=== PATIENT | male | born 1980 | race Caucasian/White ===

== ENCOUNTER 2017-10-02 09:37 | Emergency (ER) | payer SELFPAY ==
[2017-10-02 10:19] LABS: Urine Blood NEGATIVE (NEG); Urine Glucose NEGATIVE (NEG); Urine Protein NEGATIVE (NEG); Urine Specific Gravity 1.015 (1.005-1.030)
[2017-10-02 10:35] LABS: Absolute Monocytes 0.6 K/uL (0.1-1.3); Absolute Neutrophil 3.7 K/uL (1.8-8.0); Basophils % 0.2 % (0-1.3); Eosinophils % 1.6 % (0-4.4); Hematocrit 42.6 % (39.6-49.0); Lymphocytes % 31.4 % (15.3-44.8); MCH 31.2 pg (27.0-35.0); MCV 91.1 fL (80-100); MPV 7.1 fL (7.6-11.3); Monocytes % 9.7 % (3.3-12.3); RBC Red Blood Cell Count 4.68 M/uL (4.33-5.43)
[2017-10-02 10:37] LABS: Urine Amorphous Sediment TRACE /HPF (NONE SEEN); Urine Bacteria NONE SEEN /HPF (NONE SEEN); Urine Culture Reflex Order NOT NEEDED; Urine Mucus NS /HPF (NONE SEEN); Urine RBC NONE SEEN /HPF (NONE SEEN)
[2017-10-02 10:38] LABS: Potassium 3.4 mEq/L (3.6-5.0)
--- NOTE | 2017-10-02 11:48 | RAD REPORT ---
EXAM DESCRIPTION: CT - Abdomen Pelvis W Contrast - 10/02/2017 11:34 am CLINICAL HISTORY: Abdominal pain, hematochezia COMPARISON: None. TECHNIQUE: Biphasic, helical CT imaging of the abdomen and pelvis was performed following 100 ml non -ionic IV contrast. Oral contrast was given. All CT scans are performed using dose optimization technique as appropriate and may include automated exposure control or mA/KV adjustment according to patient size. FINDINGS: No suspicious findings in the lung bases. The liver, spleen, and pancreas show no suspicious findings. Gallbladder and biliary tree are also wi thout suspicious finding. Gallstones can be occult. Symmetric renal function is seen with no hydronephrosis or suspicious renal mass. No pyelonephritis o r acute renal parenchymal process. Well filled urinary bladder shows no abnormality. Prostate gland a nd seminal vesicles within normal limits. No dilated bowel loops or bowel wall thickening. No direct or indirect evidence for appendicitis. No GI process seen to explain bloody stools. No free air, free fluid or inflammatory stranding. No yessica ia, mass or bulky lymphadenopathy. The urinary bladder is without significant finding. No adrenal abn ormality. No suspicious bony findings. IMPRESSION: Contrast enhanced CT abdomen and pelvis showing no significant or suspicious finding. N o abnormality to explain pain symptoms or GI bleed findings.
--- NOTE | 2017-10-02 11:50 | ER ---
Nurse's Notes [facility] Name: Marc Oneill Age: 37 yrs Sex: Male : 1980 Arrival Date: 10/02/2017 Time: 09:39 Bed 6 Private MD: Diagnosis: Varicocele Presentation: 10/02 09:42 Presenting complaint: Patient states: I have had dark red blood in my stool for the la1 past 2 days, pt also reports abd pain. Denies N/V. Transition of care: patient was not received from another setting of care. Onset of symptoms was October 02, 2017. Care prior to arrival: None. 09:42 Method Of Arrival: Ambulatory la1 09:42 Acuity: ANGUS 3 la1 Historical: - Allergies: 09:43 No Known Allergies; la1 - PMHx: 09:43 None; la1 - PSHx: 09:43 None; la1 - Immunization history:: Adult Immunizations up to date. - Social history:: Smoking status: Patient uses tobacco products, smokes one pack cigarettes per day. Screenin:00 Abuse screen: Denies threats or abuse. Denies injuries from another. Nutritional jl7 screening: No deficits noted. Tuberculosis screening: No symptoms or risk factors identified. Fall Risk IV access (20 points). Assessment: 09:55 General: Appears in no apparent distress. uncomfortable, Behavior is anxious. Pain: jl7 Complains of pain in groin Pain does not radiate. Pain currently is 7 out of 10 on a pain scale. Quality of pain is described as throbbing, Pain began 2-3 days ago. Is continuous. Neuro: Level of Consciousness is awake, alert, obeys commands, Oriented to person, place, time, situation. Cardiovascular: Patient's skin is warm and dry. Respiratory: Airway is patent Respiratory effort is even, unlabored, Respiratory pattern is regular, symmetrical. GI: Abdomen is flat, non-distended, Bowel sounds present X 4 quads. : Genitalia appear normal Reports pain scrotum, testicle. EENT: No signs and/or symptoms were reported regarding the EENT system. Derm: Skin is pink, warm \T\ dry. Musculoskeletal: No signs and/or symptoms reported regarding the musculoskeletal system. 11:05 Reassessment: No changes from previously documented assessment. Patient and/or family jl7 updated on plan of care and expected duration. Pain level reassessed. Patient is alert, oriented x 3, equal unlabored respirations, skin warm/dry/pink. 11:45 Reassessment: Provider at bedside. jl7 Vital Signs: 09:43 BP 186 / 110; Pulse 55; Resp 16; Temp 97.2(TE); Pulse Ox 100% on R/A; Weight 86.18 kg; la1 Height 6 ft. 0 in. (182.88 cm); 10:00 BP 168 / 91; Pulse 50; Resp 16 S; Pulse Ox 100% on R/A; Pain 7/10; jl7 11:04 BP 154 / 104; Pulse 47; Resp 16 S; Pulse Ox 98% on R/A; jl7 11:55 BP 149 / 101; Pulse 54; Resp 16 S; Pulse Ox 98% on R/A; jl7 09:43 Body Mass Index 25.77 (86.18 kg, 182.88 cm) la1 ED Course: 09:39 Patient arrived in ED. tw3 09:41 Luba Reagan FNP-C is PHCP. kb 09:41 Bill Girard MD is Attending Physician. kb 09:43 Triage completed. la1 09:43 Arm band placed on left wrist. la1 09:45 Amos Crane RN is Primary Nurse. jl7 10:00 Patient has correct armband on for positive identification. Placed in gown. Bed in low jl7 position. Call light in reach. Side rails up X 1. Pulse ox on. NIBP on. 10:00 Initial lab(s) drawn, by me, sent to lab. Urine collected: clean catch specimen, clear. jl7 Inserted saline lock: 20 gauge in right antecubital area, using aseptic technique. Blood collected. 10:34 Ultrasound completed. Patient tolerated well. sg3 10:50 Notified [employer]/DARRIAN torres with US prelim . sg3 11:30 CT completed. Patient moved to CT via wheelchair. Patient moved back from CT. cw1 11:34 CT Abd/Pelvis - W/Contrast In Process Unspecified. EDMS 11:59 No provider procedures requiring assistance completed. IV discontinued, intact, jl7 bleeding controlled, No redness/swelling at site. Pressure dressing applied. Administered Medications: 11:59 Drug: Potassium Chloride 20 mEq Route: PO; jl7 11:59 Follow up: Response: Medication administered at discharge. jl7 Outcome: 11:50 Discharge ordered by . pepe 11:59 Discharged to home ambulatory. jl7 11:59 Condition: stable 11:59 Discharge instructions given to patient, Instructed on discharge instructions, follow up and referral plans. Demonstrated understanding of instructions, follow-up care. 12:01 Patient left the ED. jl7 Signatures: Dispatcher [employer] Luba Maynard, PHYSICAL THERAPY AIDES TEACHER-C PHYSICAL THERAPY AIDES TEACHER-CkCyn Barnhart cw1 Hector Dowling, RN RN la1 Amos Crane RN RN jl7 Jose, Griselda tw3 Mana Coe sg3 Corrections: (The following items were deleted from the chart) 10:11 09:42 Presenting complaint: Patient states: I have had dark red blood in my stool for la1 the past 2 days, pt also reports abd pain. Denies N/V la1 11:42 11:41 In radiology for Scrotum Testicles+US.RAD.[facility]. [facility] sg3
--- NOTE | 2017-10-02 11:50 | EDPHYS ---
Physician Documentation [facility] Name: Marc Oneill Age: 37 yrs Sex: Male : 1980 Arrival Date: 10/02/2017 Time: 09:39 Bed 6 Private MD: ED Physician Bill Girard HPI: 10/02 10:40 This 37 yrs old Male presents to ER via Ambulatory with complaints of Bloody kb Stools. 10:40 The patient presents with scrotal pain, of both sides, without swelling, without kb erythema. Onset: The symptoms/episode began/occurred 2 day(s) ago. Modifying factors: The symptoms are alleviated by nothing, the symptoms are aggravated by nothing. Associated signs and symptoms: Pertinent positives: blood in semen. Severity of symptoms: At their worst the symptoms were moderate, in the emergency department the symptoms are unchanged. The patient has experienced a previous episode, approximately 18 years ago. The patient has not recently seen a physician. Pt states he has had pain and tenderness to scrotum, blood in his semen, intermittent lower abd pain and headache for 2 days. Also reports he has some sensitivity and possible cysts to chest. When asked to point out the location, pt points to nipples. Denies blood in stool or urine. Denies recent intercourse, but says he uses protection when he does have intercourse. . Historical: - Allergies: 09:43 No Known Allergies; la1 - PMHx: 09:43 None; la1 - PSHx: 09:43 None; la1 - Immunization history:: Adult Immunizations up to date. - Social history:: Smoking status: Patient uses tobacco products, smokes one pack cigarettes per day. ROS: 10:38 Constitutional: Negative for fever, chills, and weight loss, Cardiovascular: Negative kb for chest pain, palpitations, and edema, Respiratory: Negative for shortness of breath, cough, wheezing, and pleuritic chest pain, Back: Negative for injury and pain, MS/Extremity: Negative for injury and deformity, Skin: Negative for injury, rash, and discoloration, Neuro: Negative for headache, weakness, numbness, tingling, and seizure. 10:38 Abdomen/GI: Positive for abdominal pain, nausea, Negative for vomiting, diarrhea, constipation, abdominal cramps, abdominal distension, anorexia, black/tarry stool, rectal bleeding. 10:38 : Positive for testicular pain blood in semen, Negative for hematuria. Exam: 10:39 Constitutional: This is a well developed, well nourished patient who is awake, alert, kb and in no acute distress. Head/Face: Normocephalic, atraumatic. ENT: Nares patent. No nasal discharge, no septal abnormalities noted. Tympanic membranes are normal and external auditory canals are clear. Oropharynx with no redness, swelling, or masses, exudates, or evidence of obstruction, uvula midline. Mucous membranes moist. Neck: Trachea midline, no thyromegaly or masses palpated, and no cervical lymphadenopathy. Supple, full range of motion without nuchal rigidity, or vertebral point tenderness. No Meningismus. Chest/axilla: Normal chest wall appearance and motion. Nontender with no deformity. No lesions are appreciated. Cardiovascular: Regular rate and rhythm with a normal S1 and S2. No gallops, murmurs, or rubs. Normal PMI, no JVD. No pulse deficits. Respiratory: Lungs have equal breath sounds bilaterally, clear to auscultation and percussion. No rales, rhonchi or wheezes noted. No increased work of breathing, no retractions or nasal flaring. Abdomen/GI: Soft, non-tender, with normal bowel sounds. No distension or tympany. No guarding or rebound. No evidence of tenderness throughout. Back: No spinal tenderness. No costovertebral tenderness. Full range of motion. Skin: Warm, dry with normal turgor. Normal color with no rashes, no lesions, and no evidence of cellulitis. MS/ Extremity: Pulses equal, no cyanosis. Neurovascular intact. Full, normal range of motion. Neuro: Awake and alert, GCS 15, oriented to person, place, time, and situation. Cranial nerves II-XII grossly intact. Motor strength 5/5 in all extremities. Sensory grossly intact. Cerebellar exam normal. Normal gait. Vital Signs: 09:43 BP 186 / 110; Pulse 55; Resp 16; Temp 97.2(TE); Pulse Ox 100% on R/A; Weight 86.18 kg; la1 Height 6 ft. 0 in. (182.88 cm); 10:00 BP 168 / 91; Pulse 50; Resp 16 S; Pulse Ox 100% on R/A; Pain 7/10; jl7 11:04 BP 154 / 104; Pulse 47; Resp 16 S; Pulse Ox 98% on R/A; jl7 11:55 BP 149 / 101; Pulse 54; Resp 16 S; Pulse Ox 98% on R/A; jl7 09:43 Body Mass Index 25.77 (86.18 kg, 182.88 cm) la1 MDM: 09:44 Patient medically screened. kb 10:39 Data reviewed: vital signs, nurses notes. Data interpreted: Pulse oximetry: on room air kb is 100 %. Interpretation: normal. 11:49 Counseling: I had a detailed discussion with the patient and/or guardian regarding: the kb historical points, exam findings, and any diagnostic results supporting the discharge/admit diagnosis, lab results, radiology results, the need for outpatient follow up, a family practitioner, to return to the emergency department if symptoms worsen or persist or if there are any questions or concerns that arise at home. 10/02 10:00 Order name: CBC with Diff; Complete Time: 10:44 kb 10/02 10:00 Order name: Basic Metabolic Panel; Complete Time: 10:44 kb 10/02 10:00 Order name: Urine Microscopic Only; Complete Time: 10:38 kb 10/02 10:00 Order name: US Scrotum Testicles kb 10/02 10:04 Order name: Urine Dipstick--Ancillary (enter results); Complete Time: 10:25 ag 10/02 10:44 Order name: CT Abd/Pelvis - W/Contrast; Complete Time: 11:48 kb 10/02 10:00 Order name: Urine Dipstick-Ancillary (obtain specimen); Complete Time: 10:04 kb 10/02 10:00 Order name: IV Start; Complete Time: 10:04 kb Administered Medications: 11:59 Drug: Potassium Chloride 20 mEq Route: PO; jl7 11:59 Follow up: Response: Medication administered at discharge. jl7 Disposition: 14:05 Co-signature as Attending Physician, Bill Girard MD I agree with the assessment and kdr plan of care. Disposition: 10/02/17 11:50 Discharged to Home. Impression: Varicocele. - Condition is Stable. - Discharge Instructions: Scrotal Masses. - Medication Reconciliation Form, Thank You Letter, Antibiotic Education, Prescription Opioid Use form. - Follow up: Emergency Department; When: As needed; Reason: Worsening of condition. Follow up: Private Physician; When: 2 - 3 days; Reason: Recheck today's complaints, Continuance of care, Re-evaluation by your physician. Signatures: Dispatcher [employer] Luba Maynard, GIBRAN PETERSONP-Bill Sanchez MD MD kdr Attema, Lee RN RN la1 Amos Crane RN RN jl7 Corrections: (The following items were deleted from the chart) 10:39 10:38 Abdomen/GI: Positive for abdominal pain, nausea, Negative for vomiting, diarrhea, kb constipation, abdominal cramps, abdominal distension, anorexia, kb 10:39 10:38 : Positive for testicular pain blood in semen, kb kb
[2017-10-02] MEDS ORDERED: POTASSIUM CL SA 10 MEQ TAB PO ONE (11:54)
--- NOTE | 2017-10-02 12:13 | RAD REPORT ---
EXAM DESCRIPTION: US - Scrotum Testicles - 10/02/2017 11:41 am CLINICAL HISTORY: Testicular pain. Preliminary findings provided at the time of the study. COMPARISON: None. FINDINGS: Testicular tissue is homogeneous. Doppler evaluation shows a normal blood flow pattern wit hin each testicle. No intratesticular mass. Right testicle is 5.4 x 2.4 x 2.9 cm. Left testicle is 5. 2 x 2.1 x 3.2 cm. No epididymal mass or hyperemia. A small to moderate left-sided varicocele is prese nt. Right epididymis contains a 4 millimeter cyst. IMPRESSION: Small to moderate-sized left-side varicocele. No testicle abnormality.
== END 2017-10-02 12:01 | disposition home or self-care (01) ==
LOC: ER 09:37
DX: I86.1 Scrotal varices (principal); F17.210 Nicotine dependence, cigarettes, uncomplicated
CPT/HCPCS: 36415; 74177; 76870; 80048; 81003; 81015; 85025; 99284; Q9967

== ENCOUNTER 2018-04-28 13:16 | Emergency (ER) | payer SELFPAY ==
--- NOTE | 2018-04-28 14:12 | ER ---
Nurse's Notes [facility] Name: Marc Oneill Age: 37 yrs Sex: Male : 1980 Arrival Date: 04/28/2018 Time: 13:18 Bed 5 Private MD: None, None Diagnosis: Auditory hallucinations;Schizophrenia, unspecified Presentation: 04/28 13:22 Presenting complaint: Patient states: "I hear 1 voice in my head. I don't remember what sv they tell me all the time." Denies suicidal or homicidal ideation. Reports that he mumbles to himself and sometimes isn't aware that he does it. Stated he used to take Zyprexa for schizophrenia but stopped taking it because it made him feel funny. Transition of care: patient was not received from another setting of care. Onset of symptoms is unknown. Risk Assessment: Do you want to hurt yourself or someone else? Patient reports no desire to harm self or others. Initial Sepsis Screen: Does the patient meet any 2 criteria? No. Patient's initial sepsis screen is negative. Does the patient have a suspected source of infection? No. Patient's initial sepsis screen is negative. Care prior to arrival: None. 13:22 Method Of Arrival: Ambulatory sv 13:22 Acuity: ANGUS 2 sv Triage Assessment: 13:25 General: Appears in no apparent distress. comfortable, Behavior is calm, cooperative, sv appropriate for age. Pain: Denies pain. EENT: No signs and/or symptoms were reported regarding the EENT system. Neuro: Level of Consciousness is awake, alert, obeys commands, Oriented to person, place, time, situation, Moves all extremities. Full function Gait is steady, Speech is normal. Cardiovascular: Patient's skin is warm and dry. Respiratory: Respiratory effort is even, unlabored, Respiratory pattern is regular, symmetrical. GI: No signs and/or symptoms were reported involving the gastrointestinal system. : No signs and/or symptoms were reported regarding the genitourinary system. Derm: Skin is pink, warm \\T\\ dry. Musculoskeletal: No signs and/or symptoms reported regarding the musculoskeletal system. Historical: - Allergies: 13:40 No Known Allergies; sv - Home Meds: 13:40 None [Active]; sv - PMHx: 13:40 Schizophrenia; sv - PSHx: 13:40 eye; nose; right shoulder; sv - Immunization history:: Adult Immunizations up to date. - Social history:: Smoking status: unknown Patient uses alcohol, on a daily basis. claims drinking about a 6 pack/day. Reports last drink 2 days ago.. Patient/guardian denies using street drugs, the patient reports quitting approximately 4 years ago, IV drugs, but used to experiment with IV drugs. - Ebola Screening: : No symptoms or risks identified at this time. Screenin:43 Abuse screen: Denies threats or abuse. Denies injuries from another. Nutritional sv screening: No deficits noted. Tuberculosis screening: No symptoms or risk factors identified. Fall Risk None identified. Assessment: 13:45 Reassessment: Patient appears in no apparent distress at this time. sv 14:22 Reassessment: Patient appears in no apparent distress at this time. No changes from sv previously documented assessment. Patient and/or family updated on plan of care and expected duration. Pain level reassessed. Patient is alert, oriented x 3, equal unlabored respirations, skin warm/dry/pink. Psych: 13:41 Subjective: Patient's mood is sad, Delusions are denied, Hallucinations are auditory. sv Objective: Patient is cooperative, Speech is normal, Affect is appropriate. Suicide Risk Assessment: Sad Person Scale: Sex of patient: Male: Score 1 point. Age of patient: Score 0 point if patient falls outside of specified age parameters. Depression: Score 0 point if signs of depression are not present. Previous Attempt: Score 0 point if patient has not previously attempted suicide. Substance Abuse: Score 1 point if patient abuses alcohol or drugs. Rational Thinking: Score 0 point if patient has rational thinking. Social Support: Score 1 point if social support is lacking and/or unavailable. Organized Plan: Score 0 if patient did not have an organized plan in place. Relationship: Score 1 point if patient is , , , or for a single male Chronic Sickness: Score 0 point if patient does not have a chronic illness, debilitating, or severe disorder. TOTAL POINTS: If total points are 3-4, proposed clinical action is close follow-up/consider hospitalization. Patient uses 6 pack of beer, daily. Last use was 2 days ago. Patient does not have a history of DTs. Vital Signs: 13:41 BP 174 / 116; Pulse 76; Resp 16; Temp 98.5; Pulse Ox 99% ; Weight 83.91 kg; Height 6 sv ft. 1 in. (185.42 cm); Pain 0/10; 13:41 Body Mass Index 24.41 (83.91 kg, 185.42 cm) sv ED Course: 13:18 Patient arrived in ED. sb2 13:18 None, None is Private Physician. sb2 13:21 Manisha Goodman RN is Primary Nurse. sv 13:22 Arm band placed on Patient placed in an exam room, on a stretcher. sv 13:34 Bill Girard MD is Attending Physician. kdr 13:39 Triage completed. sv 13:43 Patient has correct armband on for positive identification. Bed in low position. Call sv light in reach. Door closed. Head of bed elevated. 13:45 Awaiting ED provider evaluation. sv 14:22 No provider procedures requiring assistance completed. Patient did not have IV access sv during this emergency room visit. Administered Medications: 14:21 Drug: Motrin 800 mg Route: PO; sv 14:21 Follow up: Response: Medication administered at discharge. sv Outcome: 14:11 Discharge ordered by . kdr 14:22 Discharged to home ambulatory. sv 14:22 Condition: stable 14:22 Discharge instructions given to patient, Instructed on discharge instructions, follow up and referral plans. Pt given [facility] information. Demonstrated understanding of instructions, follow-up care. 14:23 Patient left the ED. sv Signatures: Manisha Goodman RN RN sv Bill Girard MD MD kdr Sonya Smith sb2
--- NOTE | 2018-04-28 14:12 | EDPHYS ---
Physician Documentation [facility] Name: Marc Oneill Age: 37 yrs Sex: Male : 1980 Arrival Date: 04/28/2018 Time: 13:18 Bed 5 Private MD: None, None ED Physician Bill Girard HPI: 04/28 13:57 This 37 yrs old Male presents to ER via Ambulatory with complaints of Psych kdr Problem - HEARING VOICES. 13:57 The patient presents to the emergency department with Auditory hallucinations . Onset: kdr The symptoms/episode began/occurred gradually, Last few days - has been off his meds for years.. Past psychiatric history: Prior diagnosis: schizophrenia, Psychiatric medications include: none, Primary psychiatric physician: the patient's psychiatric physician is not known, the patient has not had a prior suicide gesture, the patient has a previous inpatient psychiatric history, the patient's last psychiatric treatment was Unknown. Associated signs and symptoms: The patient has no apparent associated signs or symptoms. Severity of symptoms: At their worst the symptoms were mild in the emergency department the symptoms are unchanged. The patient has experienced similar episodes in the past, a few times, Not for a while. The patient has not recently seen a physician. Historical: - Allergies: 13:40 No Known Allergies; sv - Home Meds: 13:40 None [Active]; sv - PMHx: 13:40 Schizophrenia; sv - PSHx: 13:40 eye; nose; right shoulder; sv - Immunization history:: Adult Immunizations up to date. - Social history:: Smoking status: unknown Patient uses alcohol, on a daily basis. claims drinking about a 6 pack/day. Reports last drink 2 days ago.. Patient/guardian denies using street drugs, the patient reports quitting approximately 4 years ago, IV drugs, but used to experiment with IV drugs. - Ebola Screening: : No symptoms or risks identified at this time. ROS: 13:57 Constitutional: Negative for fever, chills, and weight loss, Eyes: Negative for injury, kdr pain, redness, and discharge, ENT: Negative for injury, pain, and discharge, Neck: Negative for injury, pain, and swelling, Cardiovascular: Negative for chest pain, palpitations, and edema, Respiratory: Negative for shortness of breath, cough, wheezing, and pleuritic chest pain, Abdomen/GI: Negative for abdominal pain, nausea, vomiting, diarrhea, and constipation, Back: Negative for injury and pain, : Negative for injury, bleeding, discharge, and swelling, MS/Extremity: Negative for injury and deformity, Skin: Negative for injury, rash, and discoloration, Neuro: Negative for headache, weakness, numbness, tingling, and seizure activity. Allergy/Immunology: Negative for hives, rash, and allergies, Endocrine: Negative for neck swelling, polydipsia, polyuria, polyphagia, and marked weight changes, Hematologic/Lymphatic: Negative for swollen nodes, abnormal bleeding, and unusual bruising. 13:57 Psych: Positive for auditory hallucinations, Negative for anxiety, depression, drug dependence, visual hallucinations, homicidal ideation, suicide gesture, suicidal ideation. Exam: 13:57 Constitutional: This is a well developed, well nourished patient who is awake, alert, kdr and in no acute distress. Head/Face: Normocephalic, atraumatic. Eyes: Pupils equal round and reactive to light, extra-ocular motions intact. Lids and lashes normal. Conjunctiva and sclera are non-icteric and not injected. Cornea within normal limits. Periorbital areas with no swelling, redness, or edema. Neck: Trachea midline, no thyromegaly or masses palpated, and no cervical lymphadenopathy. Supple, full range of motion without nuchal rigidity, or vertebral point tenderness. No Meningismus. Chest/axilla: Normal chest wall appearance and motion. Nontender with no deformity. No lesions are appreciated. Cardiovascular: Regular rate and rhythm with a normal S1 and S2. No gallops, murmurs, or rubs. Normal PMI, no JVD. No pulse deficits. Respiratory: Lungs have equal breath sounds bilaterally, clear to auscultation and percussion. No rales, rhonchi or wheezes noted. No increased work of breathing, no retractions or nasal flaring. Abdomen/GI: Soft, non-tender, with normal bowel sounds. No distension or tympany. No guarding or rebound. No evidence of tenderness throughout. Back: No spinal tenderness. No costovertebral tenderness. Full range of motion. Skin: Warm, dry with normal turgor. Normal color with no rashes, no lesions, and no evidence of cellulitis. MS/ Extremity: Pulses equal, no cyanosis. Neurovascular intact. Full, normal range of motion. Neuro: Awake and alert, GCS 15, oriented to person, place, time, and situation. Cranial nerves II-XII grossly intact. Motor strength 5/5 in all extremities. Sensory grossly intact. Cerebellar exam normal. Normal gait. 13:57 Psych: Behavior/mood is pleasant, cooperative, Affect is flat, Oriented to person, place, only. Judgement / Insight is Delusions/hallucinations Vital Signs: 13:41 BP 174 / 116; Pulse 76; Resp 16; Temp 98.5; Pulse Ox 99% ; Weight 83.91 kg; Height 6 sv ft. 1 in. (185.42 cm); Pain 0/10; 13:41 Body Mass Index 24.41 (83.91 kg, 185.42 cm) sv MDM: 13:57 Data reviewed: vital signs, nurses notes. Counseling: I had a detailed discussion with kdr the patient and/or guardian regarding: the historical points, exam findings, and any diagnostic results supporting the discharge/admit diagnosis, the need for outpatient follow up. 14:11 Patient medically screened. kdr Administered Medications: 14:21 Drug: Motrin 800 mg Route: PO; sv 14:21 Follow up: Response: Medication administered at discharge. sv Disposition: 04/28/18 14:11 Discharged to Home. Impression: Auditory hallucinations, Schizophrenia, unspecified. - Condition is Stable. - Medication Reconciliation Form, Thank You Letter form. - Follow up: Private Physician; When: 2 - 3 days; Reason: If symptoms return, Further diagnostic work-up, Recheck today's complaints, Continuance of care, Re-evaluation by your physician. - Problem is an acute exacerbation. - Symptoms are unchanged. Signatures: Manisha Goodman RN RN Bill Girard MD MD kdr Corrections: (The following items were deleted from the chart) 14:23 14:11 04/28/2018 14:11 Discharged to Home. Impression: Auditory hallucinations; sv Schizophrenia, unspecified. Condition is Stable. Forms are Medication Reconciliation Form, Thank You Letter, Antibiotic Education, Prescription Opioid Use. Follow up: Private Physician; When: 2 - 3 days; Reason: If symptoms return, Further diagnostic work-up, Recheck today's complaints, Continuance of care, Re-evaluation by your physician. Problem is an acute exacerbation. Symptoms are unchanged. kdr
[2018-04-28] MEDS ORDERED: IBUPROFEN 400 MG TAB ONE (14:13)
== END 2018-04-28 14:23 | disposition home or self-care (01) ==
LOC: ER 13:16
DX: F20.9 Schizophrenia, unspecified (principal)
CPT/HCPCS: 99284